=== PATIENT | male | born 1975 | race Caucasian/White ===

== ENCOUNTER 2017-06-10 18:18 | Inpatient (IN) | payer BC ==
[~2017-06-10] VITALS: Ht 182.9 cm; Wt 83.9 kg
--- NOTE | ~2017-06-10 | HC ---
[facility] [place] [address] CONSULTATION Name: MYCHAL ACEVEDO Room #: 458-P [facility] IN M.R.#: [id number] Admission: 06/10/17 Attend Phys: Hong Navarro Discharge: Date of : 71 Report #: [id number] THIS REPORT FOR: //name// CC: Tito Navarro DATE OF SERVICE: 06/13/2017 HISTORY OF PRESENT ILLNESS: The patient is a 41-year-old male who presented with acute onset of left flank pain, which he states began on . States the pain was very severe, radiating to his left groin area. It was associated with nausea and vomiting, which he states he had for 2 days. He states the pain was very severe until yesterday when he passed the stone. He still had some discomfort afterwards, but this morning, he states that his pain has resolved. He has not had a previous history of stone disease. He does not have a family history of kidney stones, but he does state he drinks lots of coffee. He is also a poor water drinker. He denies any dysuria, urgency, frequency, fever or chills. PAST MEDICAL HISTORY AND MEDICAL ILLNESSES: History of DVT. ALLERGIES: CODEINE and SULFA. FAMILY HISTORY: Per the chart. SOCIAL HISTORY: Per the chart. REVIEW OF SYSTEMS: Per the chart. PHYSICAL EXAMINATION: ABDOMEN: Soft. There is no flank tenderness. IMAGING: On his CT scan, he had a 2.1 x 3.4 stone at the left UVJ. IMPRESSION AND PLAN: Left ureteral calculus. The patient has passed the stone. He is pain-free now. I had a discussion with him regarding stone prevention and the importance of drinking more water and drinking less coffee. He may be discharged at any point from a urology standpoint. By: [id number] Dallas Dinero MD /nt
[~2017-06-10 18:18] MED LIST: MULTIVITAMINS1 EAC7 PO; NAPROSYN500 MG PO; NORCO 5-325 TA1 EACH PO; OMEGA 3 FISH O1 EACH PO; OSTEO BI-FLEX1 EAC1 PO; OXYCONTIN20 M1 PO; TRAMADOL 50 MG50 MG PO; XANAX 0.5 MG0.5 M1 PO; XARELTO15 MG PO; ZOFRAN ODT4 MG PO
[2017-06-10 18:24] VITALS: BP 158/109
[2017-06-10 18:47] LABS: URINE BILIRUBIN NEGATIVE (Negative); URINE BLOOD 3+ (Negative); URINE CLARITY SL CLOUDY; URINE COLOR YELLOW; URINE GLUCOSE-RANDOM* NEGATIVE (Negative); URINE KETONES TRACE (Negative); URINE LEUKOCYTES-REFLEX NEGATIVE (Negative); URINE NITRITE-REFLEX NEGATIVE (Negative); URINE PROTEIN (DIPSTICK) 1+ (Negative); URINE SPECIFIC GRAVITY >= 1.030 (1.005-1.035); URINE UROBILINOGEN 0.2 E.U./dl (0.2-1.0)
[2017-06-10 19:00] LABS: BACTERIA-REFLEX None Seen /HPF (None Seen); CASTS None Seen /LPF (None Seen); CRYSTALS None Seen /LPF (None Seen); MUCUS >6 Heavy strn/LPF (None Seen); SQUAMOUS 0-3 Few /LPF (0-3); URINE RBC >20 Many /HPF (0-2); URINE WBC-REFLEX 0-5 Rare /HPF (0-5)
[2017-06-10 19:19] LABS: ABSOLUTE NEUTROPHILS 5.1 thou/uL (1.4-8.2); BASOPHILS 0.6 % (0.0-2.0); EOSINOPHILS 0.9 % (0.0-3.0); HEMATOCRIT 45.1 % (42.0-52.0); HEMOGLOBIN 15.6 gm/dL (14.0-18.0); LYMPHOCYTES 45.4 % (24.0-44.0); MCH 30.5 pg (26.0-34.0); MCHC 34.5 g/dL (28.0-37.0); MCV 88.6 fL (80.0-100.0); PLATELET COUNT 293 thou/uL (150-400); POLYS 42.1 % (36.0-66.0); RDW 13.8 % (10.5-14.5)
[2017-06-10 19:27] LABS: CALCIUM 9.5 mg/dL (8.5-10.1); CREATININE 1.2 mg/dL (0.7-1.3); POTASSIUM 3.5 mmol/L (3.5-5.1)
[2017-06-10 19:33] LABS: ALBUMIN 3.9 g/dL (3.4-5.0); TOTAL BILIRUBIN 0.4 mg/dL (<0.1-1.0); TOTAL PROTEIN 8.2 g/dL (6.4-8.2)
[2017-06-10 20:22] VITALS: BP 157/102
[2017-06-10 21:25] VITALS: BP 143/90
[2017-06-11 03:19] VITALS: BP 122/83
[2017-06-11 07:11] VITALS: BP 126/85
[2017-06-11] MEDS ORDERED: FLOMAX0.4 MG PO (08:44)
[2017-06-11] MEDS ORDERED: NORCO 5-325 TA1 EACH PO (08:45)
[2017-06-11 16:05] VITALS: BP 133/94
[2017-06-11 20:22] VITALS: BP 121/78
[2017-06-12 03:55] VITALS: BP 134/88
[2017-06-12 08:06] VITALS: BP 131/92
[2017-06-12 12:00] LABS: URINE BILIRUBIN NEGATIVE (Negative); URINE BLOOD 1+ (Negative); URINE CLARITY CLEAR; URINE COLOR YELLOW; URINE GLUCOSE-RANDOM* NEGATIVE (Negative); URINE KETONES NEGATIVE (Negative); URINE LEUKOCYTES-REFLEX NEGATIVE (Negative); URINE NITRITE-REFLEX NEGATIVE (Negative); URINE PROTEIN (DIPSTICK) NEGATIVE (Negative); URINE SPECIFIC GRAVITY <= 1.005 (1.005-1.035); URINE UROBILINOGEN 0.2 E.U./dl (0.2-1.0)
[2017-06-12 12:16] LABS: BACTERIA-REFLEX 1-9 Few /HPF (None Seen); CASTS None Seen /LPF (None Seen); CRYSTALS None Seen /LPF (None Seen); SQUAMOUS None Seen /LPF (0-3); URINE RBC None Seen /HPF (0-2); URINE WBC-REFLEX None Seen /HPF (0-5)
[2017-06-12 16:19] VITALS: BP 136/93
[2017-06-12 19:19] VITALS: BP 136/95
[2017-06-13 03:24] VITALS: BP 129/82
[2017-06-13 08:50] VITALS: BP 139/88
[2017-06-13 12:47] VITALS: BP 139/88
[2017-06-13 13:12] VITALS: BP 139/88
[2017-06-13 13:26] VITALS: BP 139/88
== END 2017-06-13 13:20 | disposition home or self-care (01) | DRG 694 ==
LOC: ER 18:18 → 4W 20:22 → EROBS 20:22 → 4W 21:48
PROVIDERS: Hospitalist; Physician Assistant
DX: N20.1 Calculus of ureter (principal); I10 Essential (primary) hypertension; N13.9 Obstructive and reflux uropathy, unspecified; Z87.828 Personal history of other (healed) physical injury and trauma; Z86.718 Personal history of other venous thrombosis and embolism; Z87.891 Personal history of nicotine dependence; Z88.2 Allergy status to sulfonamides; Z88.5 Allergy status to narcotic agent; Z82.49 Family history of ischemic heart disease and other diseases of the circulatory system
CPT/HCPCS: 10040